=== PATIENT | female | born 1975 | race Caucasian/White ===

== ENCOUNTER 2017-02-16 17:28 | Emergency (ER) | payer BC ==
[~2017-02-16] VITALS: Ht 165.1 cm; Wt 84.0 kg
--- OUTSIDE RECORDS SUMMARY | 2017-02-16 17:32 | XMS REPORT | Continuity of Care Document ---
Author Author [facility] Address Unknown Phone Unavailable Allergies Medications Problems Date Dx Coded Attending Type Code Diagnosis Diagnosed By 06/10/2015 CAROLINE YOO, UMM R Ot 573.9 06/10/2015 CAROLINE YOO, UMM R Ot 789.01 06/17/2015 CAROLINE YOO, UMM R Ot 573.8 06/17/2015 CAROLINE YOO, UMM R Ot 789.04 06/17/2015 CAROLINE YOO, UMM R Ot V67.59 08/11/2015 CAROLINE YOO, UMM R Ot 573.9 08/11/2015 CAROLINE YOO, UMM R Ot 789.01 08/11/2015 CAROLINE YOO, UMM R Ot 573.8 08/11/2015 CAROLINE YOO, UMM R Ot 789.04 08/11/2015 CAROLINE YOO, UMM R Ot V67.59 01/13/2016 CAROLINE YOO, UMM R Ot 573.9 01/13/2016 CAROLINE YOO, UMM R Ot 789.01 01/13/2016 CAROLINE YOO, UMM R Ot 573.8 01/13/2016 CAROLINE YOO, UMM R Ot 789.04 01/13/2016 CAROLINE YOO, UMM R Ot V67.59 01/18/2016 GUY JAUREGUI APRN Ot K59.09 01/19/2016 GUY JAUREGUI APRN Ot K59.09 01/26/2016 CAROLINE YOO, UMM R Ot 573.9 01/26/2016 CAROLINE YOO, UMM R Ot 789.01 01/26/2016 CAROLINE YOO, UMM R Ot 573.8 01/26/2016 CAROLINE YOO, UMM R Ot 789.04 01/26/2016 CAROLINE YOO, UMM R Ot V67.59 03/17/2016 GUY JAUREGUI APRN Ot K59.09 OTHER CONSTIPATION 10/26/2016 BONITA VELAZQUEZ MDA R Ot 573.9 LIVER DISORDER NOS 10/26/2016 DAMIAN VELAZQUEZ MDCIA R Ot 789.01 ABDOMINAL PAIN, RIGHT UPPER QUADRANT 10/26/2016 UMM VELAZQUEZ MD R Ot 573.8 LIVER DISORDERS NEC 10/26/2016 DAMIAN VELAZQUEZ MDCIA R Ot 789.04 ABDOMINAL PAIN, LEFT LOWER QUADRANT 10/26/2016 DAMIAN VELAZQUEZ MDCIA R Ot V67.59 FOLLOW-UP EXAM NEC 10/28/2016 UMM VELAZQUEZ MD R Ot 573.9 LIVER DISORDER NOS 10/28/2016 UMM VELAZQUEZ MD R Ot 789.01 ABDOMINAL PAIN, RIGHT UPPER QUADRANT 10/28/2016 UMM VELAZQUEZ MD R Ot 573.8 LIVER DISORDERS NEC 10/28/2016 CAROLINE YOO UMM R Ot 789.04 ABDOMINAL PAIN, LEFT LOWER QUADRANT 10/28/2016 DAMIAN VELAZQUEZ MDCIA R Ot V67.59 FOLLOW-UP EXAM NEC 01/30/2017 UMM VELAZQUEZ MD R Ot 573.9 LIVER DISORDER NOS 01/30/2017 CAROLINE YOO UMM R Ot 789.01 ABDOMINAL PAIN, RIGHT UPPER QUADRANT 01/30/2017 UMM VELAZQUEZ MD R Ot 573.8 LIVER DISORDERS NEC 01/30/2017 DAMIAN VELAZQUEZ MDCIA R Ot 789.04 ABDOMINAL PAIN, LEFT LOWER QUADRANT 01/30/2017 DAMIAN VELAZQUEZ MDCIA R Ot V67.59 FOLLOW-UP EXAM NEC Procedures Results Encounters ACCT No. Visit Date/Time Discharge Status Pt. Type Provider Facility Loc./Unit Complaint [id number] 05/28/2015 07:59:00 2014 23:59:59 CLS Outpatient CAROLINE YOO, [facility] RAD LLQ PAIN F/U MASS [id number] 05/25/2015 07:22:00 2014 23:59:59 CLS Outpatient CAROLINE YOO, [facility] RAD RUQ PAIN [id number] 01/13/2016 12:45:00 ACT Outpatient GUY JAUREGUI APRN [facility] RAD
--- OUTSIDE RECORDS SUMMARY | 2017-02-16 17:33 | XMS REPORT | Continuity of Care Document ---
Author Author [facility] Address Unknown Phone Unavailable Allergies Medications [...] Status Pt. Type Provider Facility Loc./Unit Complaint [id number] 05/28/2015 07:59:00 2014 23:59:59 CLS Outpatient CAROLINE YOO, [facility] RAD LLQ PAIN F/U MASS [id number] 05/25/2015 07:22:00 2014 23:59:59 CLS Outpatient ACROLINE YOO, [facility] RAD RUQ PAIN [id number] 01/13/2016 12:45:00 ACT Outpatient GUY JAUREGUI APRN [facility] RAD
[2017-02-16] MEDS ORDERED: NITROGLYCERIN SUBLINGUAL 0.4 MG (NITROQUICK) TABLET SL ONE (17:51)
[2017-02-16] MEDS ORDERED: SODIUM CHLORIDE 250 ML ONE (18:04)
[2017-02-16] MEDS ORDERED: SODIUM CHLORIDE 250 ML IV SCH (18:10)
--- NOTE | 2017-02-16 18:27 | NUR ---
2ND NITRO GIVEN AFTER FLUID JUST NOW FINISHING & BP SYSTOLIC 105. PT STTATES SHE IS STILL HAVING CONSTANT PRESSURE STERNALLY OF 5/10 WITH IN CREASE IN PRESSURE "WHEN IT SKIPS" UP TO 810. DR CODY NOTIFIED. CL
[2017-02-16 18:49] LABS: BASOPHILS % (AUTO) 0 % (0-2); EOSINOPHILS # (AUTO) 0.2 10^3uL; EOSINOPHILS % (AUTO) 2 % (0-4); LYMPHOCYTES # (AUTO) 1.3 X10^3; MEAN CORPUSCULAR HGB CONC 35.3 g/dL (31.0-37.0); MEAN CORPUSCULAR VOLUME 88 FL (80-100); MEAN PLATELET VOLUME 12.1 FL (6.0-9.5); MONOCYTES # (AUTO) 0.6 X10^3; MONOCYTES % (AUTO) 9 % (3-11); NEUTROPHILS # (AUTO) 4.9 X10^3; NEUTROPHILS % (AUTO) 70 % (51-67); PLATELET COUNT 208 10^3uL (150-450); WHITE BLOOD COUNT 7.05 10^3uL (4.0-11.0)
[2017-02-16 18:56] LABS: ALBUMIN 4.3 g/dL (3.4-5.0); ALKALINE PHOSPHATASE 81 U/L (38-126); ANION GAP 15.6 MEQ/L (3-15); BUN/CREATININE RATIO 17 (10-20); TOTAL PROTEIN 7.1 g/dL (6.4-8.5)
--- NOTE | 2017-02-16 19:10 | Diagnostic Imaging Report ---
Indication: CHEST pain. EXAMINATION: Single view examination of the chest was obtained. FINDINGS: Chest fails to reveal evidence of active parenchymal pathology or pleural effusion. The cardiac silhouette is normal. IMPRESSION: Negative chest. Dictated by: Dictated on workstation # [id number]
[2017-02-16] MEDS ORDERED: LORazepam 2 MG/ML (ATIVAN) 1 ML VIAL IV ONE (20:10)
[2017-02-16] MEDS ORDERED: KETOROLAC 30 MG/ML (TORADOL) 1 ML VIAL IV ONE (20:10)
[2017-02-16 21:18] VITALS: BP 125/80
== END 2017-02-16 21:18 | disposition home or self-care (01) ==
LOC: ED 17:29
DX: R07.9 Chest pain, unspecified (principal); R00.2 Palpitations
CPT/HCPCS: 36415; 71010; 80053; 83735; 84443; 84484; 85025; 85610; 85730; 93005; 96374; 96375; 99285; J1885; J2060; J7050; 93010

== ENCOUNTER → 2017-02-16 | Outpatient (CLI) | payer BC | LOC: EUOP 20:53 | PROVIDERS: ATTEND Emergency Medicine | DX: R00.2 Palpitations (principal) | CPT/HCPCS: 93225 ==